=== PATIENT | female | born 1960 | race Caucasian/White ===

== ENCOUNTER → 2018-10-13 | Outpatient (CLI) | payer BC, MEDICARE | END | disposition home or self-care (01) | LOC: RAH 12:57 | PROVIDERS: ATTEND Physical Medicine & Rehabilitation | DX: N31.9 Neuromuscular dysfunction of bladder, unspecified (principal) | CPT/HCPCS: 76770 ==

== ENCOUNTER → 2019-01-18 | Outpatient (CLI) | payer BC, MEDICARE | END | disposition home or self-care (01) | LOC: RAH 12:16 | PROVIDERS: ATTEND Physical Medicine & Rehabilitation | DX: M17.11 Unilateral primary osteoarthritis, right knee (principal); M43.8X8 Other specified deforming dorsopathies, sacral and sacrococcygeal region; M47.898 Other spondylosis, sacral and sacrococcygeal region | CPT/HCPCS: 72220; 73562 ==

== ENCOUNTER → 2023-01-29 | Outpatient (CLI) | payer OTHER, MEDICARE | END | disposition home or self-care (01) | LOC: RAH 01-28 13:50 | PROVIDERS: ATTEND Physical Medicine & Rehabilitation | DX: M47.816 Spondylosis without myelopathy or radiculopathy, lumbar region (principal); M48.061 Spinal stenosis, lumbar region without neurogenic claudication; M54.51 Vertebrogenic low back pain; M46.1 Sacroiliitis, not elsewhere classified; M99.05 Segmental and somatic dysfunction of pelvic region; G12.23 Primary lateral sclerosis | CPT/HCPCS: 72110; 73521 ==

== ENCOUNTER → 2024-08-09 | Outpatient (CLI) | payer BC, MEDICARE ==
--- NOTE | 2024-08-09 13:59 | HMCIMG ---
Exam Type: CT LUMBAR SPINE W/O CONTRAST Clinical Information: RADICULOPATHY Comparison: None Technique: Spiral axial images were performed from T12 to the sacral level. Both sagittal and coronal reconstructions were performed. CT Dose Index (CTDI): 59.14 mGy Dose Length Product (DLP): 1953.1 total Findings: There is normal alignment of the vertebral bodies. There are no fractures. There is facet hypertrophy. There are spondylitic changes. There are no large bulges or herniations. The prevertebral soft tissues are normal. IMPRESSION: Degenerative changes as noted.
== END | disposition home or self-care (01) ==
LOC: RAH 13:24
PROVIDERS: ATTEND Physical Medicine & Rehabilitation
DX: M47.26 Other spondylosis with radiculopathy, lumbar region (principal)
CPT/HCPCS: 72131